=== PATIENT | female | born 1960 | race Caucasian/White ===

== ENCOUNTER 2022-09-20 16:24 | Emergency (ER) | payer OTHER, SELFPAY ==
--- NOTE | ~2022-09-20 | US_ITS ---
EXAMINATION: US VENOUS ULTRASOUND WITH DOPPLER LOWER EXTREMITY, RIGHT CLINICAL INFORMATION: Right lower extremity pain and swelling. COMPARISON: None available. TECHNIQUE: Ultrasound of the deep veins is performed from the hip to the calf with compression sonography and color and pulse Doppler assessment. Spectral analysis with color-flow imaging is performed. FINDINGS: There is normal venous compression and respiratory variation and augmented flow. The visualized common femoral vein, superficial femoral vein, profunda femoral vein, popliteal vein, and the trifurcation region shows no evidence of deep venous thrombosis. There is no significant popliteal fossa cyst. If the patient's symptoms persist, followup ultrasound in 5 days 7 days might be of value to exclude proximal propagation from a non-visualized calf vein. The left common femoral vein is widely patent. US/US venous duplex LE RT IMPRESSION: No DVT demonstrated in the right lower extremity.
--- NOTE | ~2022-09-20 | XR_ITS ---
EXAMINATION: XR KNEE, RIGHT CLINICAL INFORMATION: Right knee pain. COMPARISON: None available. TECHNIQUE: Four views of the right knee. FINDINGS: Mild medial femoral-tibial degenerative joint changes are seen. There is no acute fracture dislocation. There is a small suprapatellar joint effusion. The soft tissues are unremarkable. Moderate atherosclerosis is noted. XR/XR knee RT 4V IMPRESSION: 1. Mild medial femoral-tibial degenerative joint changes suggesting osteoarthritis. 2. Small suprapatellar joint effusion.
--- NOTE | 2022-09-20 16:59 | ED_ITS ---
HPI - Extremity Problem General Chief complaint: General Medical Stated complaint: Sent by Right leg swollen Time Seen by Provider: 09/20/22 19:24 Source: patient Mode of arrival: ambulatory Limitations: no limitations History of Present Illness HPI Narrative: Patient comes in the emergency room complaining of right swollen leg for 5 days. Patient states that she mostly has pain behind the knee and in the calf . Patient denies any trauma. Patient states that she call her primary care physician and she was instructed to, to emergency room to rule out DVT. Patient denies any chest pain or shortness of breath. Patient is not on any blood thinners. Related Data Previous Rx's Medication Instructions Recorded tramadol 50 mg tablet 50 mg PO BID PRN pain #6 tabs 09/20/22 Allergies Allergy/AdvReac Type Severity Reaction Status Date / Time Sulfa (Sulfonamide Allergy Headache Verified 09/20/22 17:00 Antibiotics) Review of Systems Review of Systems: Constitutional : No Weight loss, No Fever, No Chills, No Night Sweats, No Fatigue, No Malaise ENT/Mouth : No Hearing loss, No Ear Pain, No Nasal Congestion, No Sinus Pain, No Hoarseness, No sore throat, No Rhinorrhea, No Swallowing Difficulty Eyes: No Eye Pain, No Swelling, No Redness, No Foreign Body, No Discharge, No Vision Changes Cardiovascular : No Chest Pain, No SOB, No Dyspnea on Exertion, No Orthopnea, No Edema, No Palpitations Respiratory : No Cough, No Sputum, No Wheezing, No Smoke Exposure, No Dyspnea Gastrointestinal : No Nausea, No Vomiting, No Diarrhea, No Constipation, No abdominal Pain, No Hematochezia, No Melena Genitourinary : no irregular bleeding, No Dysuria, No Urinary Frequency, No Hematuria, No Urinary Incontinence, No Urgency, No Flank Pain, No Urinary Flow Changes, No Hesitancy Musculoskeletal : Complaining of right calf pain, No Myalgias, No Joint Swelling Skin : No Skin Lesions, No rash Neuro : No Weakness, No Numbness, No Paresthesias, No Loss of Consciousness, No Dizziness, No Headache Psych : No Anxiety/Panic, No Depression, No SI/HI/AH/VH, No Social Issues, Heme/Lymph: No Bruising, No Bleeding,No Lymphadenopathy Endocrine : No Polyuria, No Polydipsia, No Temperature Intolerance [facility] Past Medical History Surgical History (Updated 09/20/22 @ 19:37 by Denise Gonzalez MD) H/O cardiac catheterization Social History Social History Advance Directives: No Advance Directives Information Provided: No Physical Exam Vital Signs: Vital Signs: Last Vital Signs Temp 97.7 F 09/20/22 18:54 Pulse 65 09/20/22 18:54 Resp 17 09/20/22 18:54 BP 149/74 H 09/20/22 18:54 Pulse Ox 100 09/20/22 18:54 O2 Del Method Room Air 09/20/22 18:54 BMI result Body Mass Index 31.3 Const: Other: Appearance: Alert. Oriented X3. No acute distress. Eyes: Pupils equal, round and reactive to light. ENT: Pharynx normal. Neck: Normal inspection. Neck supple. No lymph nodes noted. No crepitus CVS: Normal heart rate and rhythm. Pulses normal. Normal S1 and S2 Respiratory: No respiratory distress. Breath sounds normal. No Wheezing. No rales Abdomen: Soft and nontender. No rigidity. No distention. Skin: Skin warm and dry. Normal skin color. Normal skin turgor. Extremities: Mild knee swelling, pain to palpation in the posterior aspect of the knee, mild pain to palpation in the calf. No Lacerations. No Rash Neuro: Oriented X 3. No motor deficit. No sensory deficit. Moving all extremities. No slurred speech. CN 2 through 12 grossly intact Psych: calm, cooperative, normal affect Course Course Course Narrative: RME - 61 yo female presents to the ER for evaluation of nontraumatic swollen and painful right lower leg for the last couple of weeks which has been worsening. Sent in by PCP to r/o DVT. Also reporting right knee pain, similar pain to when she had meniscus tear. No chest pain or SOB. Plan: LE doppler and x-ray knee Medical Decision Making Medical Decision Making [facility] Narrative: -my interpretation of ultrasound: No obvious occlusions, unlikely to be positive for DVT -interpretation of knee x-ray: Normal alignment, no patellar dislocation -patient's source of pain is likely musculoskeletal -patient will to flex and extend the knee, no erythema, no additional warmth to touch, septic joint is not suspected, patient ambulatory Differential Diagnosis Differential Diagnoses: The differential diagnosis associated with the presentation includes (Patellar fracture, dislocation, subluxation, effusion, DVT) Independent Interpretation I performed an independent interpretation of an: Ultrasound Radiology Impression Discussion of test interpretation with radiology: I have reviewed the radiologist's reading. Radiologist Impression: FINDINGS: There is normal venous compression and respiratory variation and augmented flow. The visualized common femoral vein, superficial femoral vein, profunda femoral vein, popliteal vein, and the trifurcation region shows no evidence of deep venous thrombosis. ? There is no significant popliteal fossa cyst. If the patient's symptoms persist, followup ultrasound in 5 days 7 days might be of value to exclude proximal propagation from a non-visualized calf vein. The left common femoral vein is widely patent. US/US venous duplex LE RT IMPRESSION: No DVT demonstrated in the right lower extremity. FINDINGS: Mild medial femoral-tibial degenerative joint changes are seen. There is no acute fracture dislocation. There is a small suprapatellar joint effusion. The soft tissues are unremarkable. Moderate atherosclerosis is noted.? XR/XR knee RT 4V IMPRESSION: 1.? Mild medial femoral-tibial degenerative joint changes suggesting osteoarthritis. 2.? Small suprapatellar joint effusion. Discharge Plan Discharge Clinical Impression: Leg pain, Effusion of patella Patient Disposition: Home, Self-Care Instructions: Osteoarthritis (ED) Additional Instructions: Please follow-up with your primary care physician tomorrow. If you have any worsening or new symptoms, please return to the emergency room or call 911 Prescriptions: New tramadol 50 mg tablet 50 mg PO BID PRN (Reason: pain) Qty: 6 0RF
[2022-09-20 17:01] VITALS: BP 128/75; PULSE 74; RESP 18; TEMP 37.1; O2SAT 96; BMI 31.3
[2022-09-20 18:54] VITALS: BP 149/74; PULSE 65; RESP 17; TEMP 36.5; O2SAT 100
== END 2022-09-20 20:34 | disposition home or self-care (01) ==
PROVIDERS: Emergency Provider Emergency Medicine; PCP Nurse Practitioner Adult Health
DX: R60.0 Localized edema (principal); M25.461 Effusion, right knee; M25.561 Pain in right knee
CPT/HCPCS: 73564; 93971; 99283; 99284